=== PATIENT | female | born 1975 | race African-American/Black ===

== ENCOUNTER 2016-12-30 17:22 | Observation (INO) | payer MEDICARE, OTHER ==
[2016-12-30 17:46] VITALS: BMI 41.5
--- NOTE | 2016-12-30 17:50 | PDOC ---
History of Present Illness - General History Source: Patient, Old Records Exam Limitations: No Limitations <Olivia Jacques - Last Filed: 12/30/16 22:36> - General History Source: Patient, Old Records Exam Limitations: No Limitations - History of Present Illness Initial Comments: 12/30/16 19:09 The patient is a 41 year old female, with a significant past medical history of HTN and mitral valve prolapse, who presents to the emergency department with radiating midsternal chest pain and palpitations since earlier today. The patient describes her chest pain as sharp, she rates it as a 10/10 in severity and states that the episode of chest pain lasted a couple of minutes. The patient reports that her chest pain radiated to her left upper extremity as a numbness/tingling sensation. She states that her symptoms came on suddenly at rest as she was talking to her sister. She reports that her chest pain was not associated with any exertion. She reports that she has never experienced an episode like this ever before. The patient reports taking an aspirin (81 mg) this afternoon at approximately 3PM, with some relief of symptoms. She denies any associated nausea, vomiting, diaphoresis or shortness of breath. She denies any dizziness or lightheadedness. Allergies: Amoxicillin, Peanut, MSG. Past Surgical History: None reported. Social History: Non smoker. Denies alcohol or drug use. PCP: Dr. Patricia Mcguire Text Transcriber: Dr. Beltran <Sima Coleman - Last Filed: 12/30/16 22:40> - General Chief Complaint: Chest Pain Stated Complaint: CHEST PAIN Time Seen by Provider: 12/30/16 17:28 Past History - Past Medical History Cardiac Disorders: (mvp) HTN: Yes - Psycho/Social/Smoking Cessation Hx Anxiety: No Suicidal Ideation: No Smoking Status: No Smoking History: Never smoked Have you smoked in the past 12 months: No Number of Cigarettes Smoked Daily: 0 Information on smoking cessation initiated: No Hx Alcohol Use: No Drug/Substance Use Hx: No Substance Use Type: None <Zonia Jacquesfany - Last Filed: 12/30/16 22:36> <Sima Coleman - Last Filed: 12/30/16 22:40> - Past Medical History Allergies/Adverse Reactions: Allergies Allergy/AdvReac Type Severity Reaction Status Date / Time amoxicillin [Amoxicillin] Allergy Verified 12/30/16 17:43 peanut Allergy Verified 12/30/16 17:43 MSG Allergy Uncoded 12/30/16 17:43 Home Medications: Ambulatory Orders Aspirin [ASA -] 81 mg PO DAILY tab.chew 04/08/16 Hydrochlorothiazide [Hctz -] 12.5 mg PO DAILY 12/30/16 Review of Systems - Review of Systems Able to Perform ROS?: Yes Comments:: 12/30/16 19:09 GENERAL/CONSTITUTIONAL: No fever or chills. No weakness. HEAD, EYES, EARS, NOSE AND THROAT: No change in vision. No ear pain or discharge. No sore throat. CARDIOVASCULAR: +Chest pain, palpitations. No shortness of breath. RESPIRATORY: No cough, wheezing, or hemoptysis. GASTROINTESTINAL: No nausea, vomiting, diarrhea or constipation. GENITOURINARY: No dysuria, frequency, or change in urination. MUSCULOSKELETAL: No joint or muscle swelling or pain. No neck or back pain. SKIN: No rash. NEUROLOGIC: No headache, vertigo, loss of consciousness, or change in strength/ sensation. ENDOCRINE: No increased thirst. No abnormal weight change. HEMATOLOGIC/LYMPHATIC: No anemia, easy bleeding, or history of blood clots. ALLERGIC/IMMUNOLOGIC: No hives or skin allergy. <Sima Coleman - Last Filed: 12/30/16 22:40> *Physical Exam - Vital Signs Last Vital Signs Temp Pulse Resp BP Pulse Ox 98.1 F 91 H 18 131/92 100 12/30/16 17:44 12/30/16 17:44 12/30/16 17:44 12/30/16 17:44 12/30/16 17:44 <Olivia Jacques - Last Filed: 12/30/16 22:36> - Vital Signs Last Vital Signs Temp Pulse Resp BP Pulse Ox 98.1 F 91 H 18 131/92 100 12/30/16 17:44 12/30/16 17:44 12/30/16 17:44 12/30/16 17:44 12/30/16 17:44 - Physical Exam Comments: 12/30/16 19:19 GENERAL: Awake, alert, and fully oriented, in no acute distress. HEAD: No signs of trauma. EYES: PERRLA, EOMI, sclera anicteric, conjunctiva clear. ENT: Auricles normal inspection, hearing grossly normal, nares patent, oropharynx clear without exudates. Moist mucosa. NECK: Normal ROM, supple, no lymphadenopathy, JVD, or masses. LUNGS: Breath sounds equal, clear to auscultation bilaterally. No wheezes, and no crackles. HEART: Regular rate and rhythm, normal S1 and S2, no murmurs, rubs or gallops. ABDOMEN: Soft, nontender, normoactive bowel sounds. No guarding, no rebound. No masses. EXTREMITIES: Normal range of motion, no edema. No clubbing or cyanosis. No cords, erythema, or tenderness. NEUROLOGICAL: Cranial nerves II through XII grossly intact. Normal speech, normal gait. SKIN: Warm, dry, normal turgor, no rashes or lesions noted. <Sima Coleman - Last Filed: 12/30/16 22:40> ED Treatment Course - LABORATORY CBC & Chemistry Diagram: 12/30/16 18:13 12/30/16 18:13 <Olivia Jacques - Last Filed: 12/30/16 22:36> - LABORATORY CBC & Chemistry Diagram: 12/30/16 18:13 12/30/16 18:13 - ADDITIONAL ORDERS Additional order review: Laboratory Results 12/30/16 18:13 Urine Color Straw Urine Appearance Clear Urine pH 7.0 Ur Specific [place] 1.010 Urine Protein Negative Urine Glucose (UA) Negative Urine Ketones Negative Urine Blood 1+ H Urine Nitrite Negative Urine Bilirubin Negative Urine Urobilinogen Negative Ur Leukocyte Esterase Negative Urine RBC 2 Urine WBC <1 Ur Epithelial Cells Rare 12/30/16 18:13 RBC 4.38 MCV 89.8 MCHC 33.5 RDW 13.5 MPV 7.9 Neutrophils % 52.6 Lymphocytes % 34.6 Monocytes % 10.4 H Eosinophils % 1.7 Basophils % 0.7 <Sima Coleman - Last Filed: 12/30/16 22:40> Medical Decision Making - Medical Decision Making 12/30/16 18:45 41-year-old female with history of hypertension and mitral valve prolapse who presents to the emergency Department with complaints of chest pain radiating to her left arm associated with palpitations that started at rest this morning. Differential diagnosis includes but is not limited to: ACS, cardiac arrhythmia, thyroid disease, electrolyte abnormality, GERD, toxic/metabolic derangement. Plan: 1. Labs 2. EKG 3. Chest x-ray 4. Aspirinthe patient took 81 mg at 3 PM today; will give the remaining 243 mg in the ED now 5. Observe and reevaluate 12/30/16 22:36 Addendum: The labs were reviewed and are noted in the EMR. I've discussed the EKG as well as lab findings with the patient. The plan is to admit to observation for serial cardiac markers as well as stress test in the morning. I' ve discussed this with the patient's primary care physician was accepted patient to observation. <Olivia Jacques - Last Filed: 12/30/16 22:36> - Medical Decision Making 12/30/16 21:51 Called patient's PCP, Dr. Patricia Mcguire, at at 21:52, 22:25. Referred to answering service, awaiting callback. Dr. Patricia Mcguire returned call at 22:35, case discussed. <Sima Coleman - Last Filed: 12/30/16 22:40> *DC/Admit/Observation/Transfer - Discharge Dispostion Admit: Yes - Attestations Physician Attestion: 12/30/16 18:47 I, Dr. Olivia Jacques, attest that the scribes documentation that appears above has been prepared under my direction and personally reviewed by me in its entirety. I confirmed that the note above accurately reflects all work, treatment, procedures, and medical decision-making performed by me. <Olivia Jacques - Last Filed: 12/30/16 22:36> - Attestations Scribe Attestion: 12/30/16 18:34 Documentation prepared by Sima Coleman, acting as biomedical electronics technician for Olivia Jacques MD. <Sima Coleman - Last Filed: 12/30/16 22:40> Diagnosis at time of Disposition: Palpitations, Chest pain - Discharge Dispostion Condition at time of disposition: Stable
[2016-12-30 18:25] LABS: BASOPHIL 0.7 % (0-2.0); EOSINOPHIL 1.7 % (0-4.5); MCH 30.1 pg (25.7-33.7); MCHC 33.5 g/dl (32.0-36.0); MEAN CELL VOLUME 89.8 fl (80-96); MEAN PLT VOLUME 7.9 fl (7.5-11.1); NEUTROPHILS 52.6 % (42.8-82.8); PLATELET COUNT 281 K/MM3 (134-434); RDW 13.5 % (11.6-15.6); WHITE BLOOD COUNT 7.8 K/mm3 (4.0-10.0)
[2016-12-30 18:26] LABS: URINE APPEARANCE CLEAR; URINE BILIRUBIN NEGATIVE (NEGATIVE); URINE COLOR STRAW; URINE GLUCOSE (UA) NEGATIVE (NEGATIVE); URINE KETONE NEGATIVE (NEGATIVE); URINE LEUK ESTERASE NEGATIVE (NEGATIVE); URINE NITRITE NEGATIVE (NEGATIVE); URINE PROTEIN NEGATIVE (NEGATIVE); URINE UROBILINOGEN NEGATIVE E.U./dl (0.2-1.0)
[2016-12-30 18:27] LABS: URINE BLOOD 1+ (NEGATIVE)
[2016-12-30 18:29] LABS: URINE RBC 2 /hpf (0-3); URINE WBC <1 /hpf (3-5)
[2016-12-30] MEDS ORDERED: ASPIRIN 81 MG CHEWABLE TABLETS PO SCH (18:45)
[2016-12-30] MEDS ORDERED: ASPIRIN 81 MG CHEWABLE TABLETS ONE (18:48)
[2016-12-30 19:03] LABS: ALBUMIN 3.8 g/dl (3.4-5.0); ANION GAP 12 (8-16); BILIRUBIN,TOTAL 0.6 mg/dL (0.2-1.0); CO2 26 mmol/L (21-32); CREATININE 1.1 mg/dL (0.55-1.02); GLUCOSE,RANDOM 80 mg/dL (74-106); PHOSPHOROUS 3.1 mg/dL (2.5-4.9); SGOT/AST 12 U/L (15-37); SGPT/ALT 21 U/L (12-78); TOT PROT 7.6 g/dl (6.4-8.2)
[2016-12-30 19:06] LABS: ALK PHOS 79 U/L (45-117); TROPONIN I < 0.02 ng/ml (0.00-0.05)
[2016-12-30] MEDS ORDERED: POTASSIUM CHLORIDE TABS 20 MEQ TABLET.ER (FP) PO ONE ×2 (20:19→21:13)
[2016-12-30] MEDS ORDERED: POTASSIUM CHLORIDE 40 MEQ/30 ML UNIT DOSE CUP ONE (22:15)
[2016-12-30 23:43] LABS: TROPONIN I < 0.02 ng/ml (0.00-0.05)
[2016-12-31 03:52] VITALS: TEMP 99.3
[2016-12-31 08:30] VITALS: BP 115/72; PULSE 87
[2016-12-31 08:33] LABS: BASOPHIL 0.7 % (0-2.0); EOSINOPHIL 1.5 % (0-4.5); MCH 30.6 pg (25.7-33.7); MCHC 33.9 g/dl (32.0-36.0); MEAN CELL VOLUME 90.1 fl (80-96); MEAN PLT VOLUME 8.1 fl (7.5-11.1); NEUTROPHILS 47.6 % (42.8-82.8); PLATELET COUNT 256 K/MM3 (134-434); RDW 13.7 % (11.6-15.6); WHITE BLOOD COUNT 6.4 K/mm3 (4.0-10.0)
[2016-12-31 09:07] LABS: TROPONIN I < 0.02 ng/ml (0.00-0.05)
[2016-12-31 09:25] LABS: ALBUMIN 3.5 g/dl (3.4-5.0); BILIRUBIN,TOTAL 0.9 mg/dL (0.2-1.0); CALCIUM 8.6 mg/dL (8.5-10.1); CREATININE 1.1 mg/dL (0.55-1.02); FREE T4 0.99 ng/dl (0.76-1.46); MAGNESIUM 1.9 mg/dL (1.8-2.4); THYROID STIMULATING HORMONE 2.86 uIU/ml (0.358-3.74); TOT PROT 6.7 g/dl (6.4-8.2)
--- NOTE | 2016-12-31 09:27 | HP ---
[id number] Chief Complaint: chest pain , palpitations History of Present Illness: ER HISTORY - History of Present Illness Initial Comments: 12/30/16 19:09 The patient is a 41 year old female, with a significant past medical history of HTN and mitral valve prolapse, who presents to the emergency department with radiating midsternal chest pain and palpitations since earlier today. The patient describes her chest pain as sharp, she rates it as a 10/10 in severity and states that the episode of chest pain lasted a couple of minutes. The patient reports that her chest pain radiated to her left upper extremity as a numbness/tingling sensation. She states that her symptoms came on suddenly at rest as she was talking to her sister. She reports that her chest pain was not associated with any exertion. She reports that she has never experienced an episode like this ever before. The patient reports taking an aspirin (81 mg) this afternoon at approximately 3PM, with some relief of symptoms. She denies any associated nausea, vomiting, diaphoresis or shortness of breath. She denies any dizziness or lightheadedness. Allergies: Amoxicillin, Peanut, MSG. Past Surgical History: None reported. Social History: Non smoker. Denies alcohol or drug use. PCP: Dr. Patricia Mcguire Printing Agent: Dr. Beltran Pt seen by me in Tele States she has no chest pain currently Feels better today no palpitations or SOB Had mild abdominal pain this AM which subsided No nausea, dizziness History Source: Patient Limitations to Obtaining History: No Limitations - Past Medical History Cardiovascular: Yes: HTN - Smoking History Smoking history: Never smoked Have you smoked in the past 12 months: No Aproximately how many cigarettes per day: 0 - Alcohol/Substance Use Hx Alcohol Use: No Home Medications - Allergies Allergies/Adverse Reactions: Allergies Allergy/AdvReac Type Severity Reaction Status Date / Time amoxicillin [Amoxicillin] Allergy Verified 12/30/16 17:43 peanut Allergy Verified 12/30/16 17:43 MSG Allergy Uncoded 12/30/16 17:43 - Home Medications Home Medications: Ambulatory Orders Aspirin [ASA -] 81 mg PO DAILY tab.chew 04/08/16 Hydrochlorothiazide [Hctz -] 12.5 mg PO DAILY 12/30/16 Metoprolol Tartrate [Lopressor -] 25 mg PO DAILY PRN #60 tablet 12/31/16 Potassium Chloride 10 meq PO DAILY #60 capsule.er 12/31/16 Review of Systems - Review of Systems Constitutional: denies: Chills, Fever, Loss of Appetite, Weakness Cardiovascular: reports: Chest Pain, Palpitations. denies: Edema, Shortness of Breath Respiratory: denies: Cough, SOB Physical Examination Vital Signs: Vital Signs Temperature 99.3 F 12/30/16 23:45 Pulse Rate 87 12/31/16 08:24 Respiratory Rate 20 12/31/16 08:24 Blood Pressure 115/72 12/31/16 08:24 O2 Sat by Pulse Oximetry (%) 100 12/31/16 00:18 Constitutional: Yes: No Distress, Calm Cardiovascular: Yes: Regular Rate and Rhythm Respiratory: Yes: CTA Bilaterally Gastrointestinal: Yes: Normal Bowel Sounds, Soft, Abdomen, Obese. No: Distention, Tenderness Edema: No Psychiatric: Yes: Alert, Oriented Labs: CBC, BMP 12/31/16 05:45 12/31/16 05:45 Imaging - Results Chest X-ray: Image Reviewed (clear) EKG: Image Reviewed (NSR, No ST changes) Problem List - Problems (1) Chest pain Code(s): R07.9 - CHEST PAIN, UNSPECIFIED Qualifiers: Chest pain type: other chest pain Qualified Code(s): R07.89 - Other chest pain; R07.8 - Other chest pain (2) Palpitations Code(s): R00.2 - PALPITATIONS Assessment/Plan PLAN no PVC here She has had multiple work up with Dr Beltran in the past for the above symptoms- - negative work up continue with HCTZ, add KCL daily spoke with DR Blackwood-- trial of Lopressor PRN in case she has palpitations Stable for dc home
[2016-12-31] MEDS ORDERED: ASPIRIN 81 MG CHEWABLE TABLETS PO SCH (10:00)
[2016-12-31] MEDS ORDERED: HYDROCHLOROTHIAZIDE 12.5 MG CAPSULE (FP) PO SCH (10:00)
--- NOTE | 2016-12-31 10:57 | CON.CARD ---
Cardiology Consult (text) - Consultation Consultation Note: cc: palps, cp hpi: 41 f hx obesity, mvp, chronic palps/cp, htn, anxiety, here with cp/palps. Pt has chronic intermittent episodes of atypical cp along with palps ( sometimes skipped beats, sometimes fast beats) that has been occurring for years with prior cardiac workup unremarkable. Yesterday she had cp/palps episode at rest but seemed to be worse and longer duration than usual so came to er. No sob, dizzy, loc, pnd, orthopnea, le edema. No excess caffeine use. This AM feels better and asking to go home. Sees dr adler for cardio. pmh: per hpi psh: NC social: no tob fam: mom cabg 50s, no scd ros: per hpi; no nvd, fever, cough, [place], vision changes, gib, hematuria, dysuria , muscle pain meds: Home Medications Medication Instructions Recorded Aspirin [ASA -] 81 mg PO DAILY tab.chew 04/08/16 Hydrochlorothiazide [Hctz -] 12.5 mg PO DAILY 12/30/16 Metoprolol Tartrate [Lopressor -] 25 mg PO DAILY PRN #60 tablet 12/31/16 Potassium Chloride 10 meq PO DAILY #60 capsule.er 12/31/16 pe: Vital Signs Period Temp Pulse Resp BP Sys/Kim Pulse Ox Last 24 Hr 98.1 F-99.3 F 86-92 18-20 115-131/72-92 98-100 nad no jvd rrr s1s2 no mrg cta bl nl eff aaox3 no le e/c/c abd nd nt pos bs no jaundice diaphoresis pos dp pt no carotid bruits Laboratory Last Values WBC 6.4 K/mm3 (4.0-10.0) 12/31/16 05:45 RBC 4.07 M/mm3 (3.60-5.2) 12/31/16 05:45 Hgb 12.4 GM/dL (10.7-15.3) 12/31/16 05:45 Hct 36.7 % (32.4-45.2) 12/31/16 05:45 MCV 90.1 fl (80-96) 12/31/16 05:45 MCHC 33.9 g/dl (32.0-36.0) 12/31/16 05:45 RDW 13.7 % (11.6-15.6) 12/31/16 05:45 Plt Count 256 K/MM3 (134-434) 12/31/16 05:45 MPV 8.1 fl (7.5-11.1) 12/31/16 05:45 Neutrophils % 47.6 % (42.8-82.8) 12/31/16 05:45 Lymphocytes % 41.7 % (8-40) H D 12/31/16 05:45 Monocytes % 8.5 % (3.8-10.2) 12/31/16 05:45 Eosinophils % 1.5 % (0-4.5) 12/31/16 05:45 Basophils % 0.7 % (0-2.0) 12/31/16 05:45 Sodium 139 mmol/L (136-145) 12/31/16 05:45 Potassium 3.5 mmol/L (3.5-5.1) 12/31/16 05:45 Chloride 104 mmol/L (98-107) 12/31/16 05:45 Carbon Dioxide 25 mmol/L (21-32) 12/31/16 05:45 Anion Gap 10 (8-16) 12/31/16 05:45 BUN 13 mg/dL (7-18) 12/31/16 05:45 Creatinine 1.1 mg/dL (0.55-1.02) H 12/31/16 05:45 Creat Clearance w eGFR 54.47 (>60) 12/31/16 05:45 Random Glucose 93 mg/dL (74-106) 12/31/16 05:45 Calcium 8.6 mg/dL (8.5-10.1) 12/31/16 05:45 Phosphorus 3.1 mg/dL (2.5-4.9) D 12/30/16 18:13 Magnesium 1.9 mg/dL (1.8-2.4) 12/31/16 05:45 Total Bilirubin 0.9 mg/dL (0.2-1.0) D 12/31/16 05:45 AST 11 U/L (15-37) L 12/31/16 05:45 ALT 19 U/L (12-78) 12/31/16 05:45 Alkaline Phosphatase 74 U/L (45-117) 12/31/16 05:45 Creatine Kinase 125 IU/L (26-192) 12/31/16 05:45 CK-MB (CK-2) < 1.000 ng/ml (0.5-3.6) 12/30/16 18:13 Troponin I < 0.02 ng/ml (0.00-0.05) 12/31/16 05:45 Total Protein 6.7 g/dl (6.4-8.2) 12/31/16 05:45 Albumin 3.5 g/dl (3.4-5.0) 12/31/16 05:45 TSH 2.86 uIU/ml (0.358-3.74) D 12/31/16 05:45 Free T4 0.99 ng/dl (0.76-1.46) D 12/31/16 05:45 Urine Color Straw 12/30/16 18:13 Urine Appearance Clear 12/30/16 18:13 Urine pH 7.0 (5.0-8.0) 12/30/16 18:13 Ur Specific [place] 1.010 (1.001-1.035) 12/30/16 18:13 Urine Protein Negative (NEGATIVE) 12/30/16 18:13 Urine Glucose (UA) Negative (NEGATIVE) 12/30/16 18:13 Urine Ketones Negative (NEGATIVE) 12/30/16 18:13 Urine Blood 1+ (NEGATIVE) H 12/30/16 18:13 Urine Nitrite Negative (NEGATIVE) 12/30/16 18:13 Urine Bilirubin Negative (NEGATIVE) 12/30/16 18:13 Urine Urobilinogen Negative E.U./dl (0.2-1.0) 12/30/16 18:13 Ur Leukocyte Esterase Negative (NEGATIVE) 12/30/16 18:13 Urine RBC 2 /hpf (0-3) 12/30/16 18:13 Urine WBC <1 /hpf (3-5) 12/30/16 18:13 Ur Epithelial Cells Rare /hpf (FEW) 12/30/16 18:13 ecg 12/30/16: sr, nl intervals, nonspecific tw flattening, no sig change from office ecg 11/30/16 tele: sr cxr: clear lungs echo 11/2016: nl lv/rv, mild mr, no mvp a/p: 41 f hx obesity, mvp, chronic palps/cp, htn, anxiety, here with cp/palps. cp/palps: -chronic symptoms -no signs acs, ce's neg x3, ecg w/o ischemic changes -tele unremarkable -has had recent unremarkable echo and prior event monitor in 2014 that was benign -possible she may be having some ectopy or brief svt causing her sxs so would start lopressor 25 mg prn once daily if needed for palps. if this bb is helping her sxs then would eventually dc hctz and use bb for bp/palp control. -ok for dc from cardiac pov. pt instructed to f/u with cardio dr adler 1-2 weeks mvp: -stable, no mvp seen on recent echo htn: -controlled on hctz
--- NOTE | 2016-12-31 20:34 | DS ---
Physical Examination Vital Signs: Vital Signs Temperature 99.3 F 12/30/16 23:45 Pulse Rate 87 12/31/16 08:24 Respiratory Rate 20 12/31/16 08:24 Blood Pressure 115/72 12/31/16 08:24 O2 Sat by Pulse Oximetry (%) 94 L 12/31/16 09:00 Labs: CBC, BMP 12/31/16 05:45 12/31/16 05:45 Discharge Summary Reason For Visit: PALPITATIONS/CHEST PAIN Current Active Problems Chest pain (Acute) Palpitations (Acute) Hospital Course: see h & P-- same day discharge Condition: Stable - Instructions Disposition: HOME - Home Medications Comprehensive Discharge Medication List: Ambulatory Orders Aspirin [ASA -] 81 mg PO DAILY tab.chew 04/08/16 Hydrochlorothiazide [Hctz -] 12.5 mg PO DAILY 12/30/16 Metoprolol Tartrate [Lopressor -] 25 mg PO DAILY PRN #60 tablet 12/31/16 Potassium Chloride 10 meq PO DAILY #60 capsule.er 12/31/16
--- NOTE | 2017-01-01 00:43 | EKG ---
Test Reason : Blood Pressure : / mmHG Vent. Rate : 084 BPM Atrial Rate : 084 BPM P-R Int : 158 ms QRS Dur : 082 ms QT Int : 440 ms P-R-T Axes : 053 -22 020 degrees QTc Int : 519 ms NORMAL SINUS RHYTHM POSSIBLE LEFT ATRIAL ENLARGEMENT NONSPECIFIC T WAVE ABNORMALITY PROLONGED QT ABNORMAL ECG WHEN COMPARED WITH ECG OF 30-DEC-2016 17:35, NO SIGNIFICANT CHANGE WAS FOUND Confirmed by JAYCE DELATORRE MD ([id number]) on 01/01/2017 12:43:00 AM Referred By: Confirmed By:JAYEC DELATORRE MD
--- NOTE | 2017-01-01 00:46 | EKG ---
Test Reason : Blood Pressure : / mmHG Vent. Rate : 093 BPM Atrial Rate : 093 BPM P-R Int : 150 ms QRS Dur : 082 ms QT Int : 384 ms P-R-T Axes : 064 -23 032 degrees QTc Int : 477 ms NORMAL SINUS RHYTHM POSSIBLE LEFT ATRIAL ENLARGEMENT NONSPECIFIC T WAVE ABNORMALITY PROLONGED QT ABNORMAL ECG WHEN COMPARED WITH ECG OF 07-APR-2016 17:32, NO SIGNIFICANT CHANGE WAS FOUND Confirmed by JAYCE DELATORRE MD ([id number]) on 01/01/2017 12:46:00 AM Referred By: Confirmed By:JAYCE DELATORRE MD
== END 2016-12-31 11:48 | disposition home or self-care (01) ==
LOC: JER 17:22 → JERBED 22:58 → J4W 12-31 01:01
PROVIDERS: ADMIT Internal Medicine; ATTEND Internal Medicine
DX: R07.9 Chest pain, unspecified (principal); R00.2 Palpitations; F41.9 Anxiety disorder, unspecified; I34.1 Nonrheumatic mitral (valve) prolapse
CPT/HCPCS: 36415; 71010-TC; 80053; 81003; 81015; 82550; 82553; 83735; 84100; 84439; 84443; 84484; 85025; 93005; 93010; 99285-25; G0378

== ENCOUNTER 2018-08-21 13:34 | Emergency (ER) | payer SELFPAY ==
--- NOTE | 2018-08-21 13:53 | PDOC ---
Rapid Medical Evaluation Time Seen by Provider: 08/21/18 13:49 Medical Evaluation: Allergies Allergy/AdvReac Type Severity Reaction Status Date / Time amoxicillin [Amoxicillin] Allergy Verified 12/30/16 17:43 peanut Allergy Verified 12/30/16 17:43 MSG Allergy Uncoded 12/30/16 17:43 08/21/18 13:50 The patient presents to the ED with: hx htn, no change in meds, felling lightheadedness and queasy with sharp achiness to left shoulder and neck and upper back x 1 day, headache yesterday( resolved w/out intervention) The patient on brief exam: vss The patient ordered for: cardiac profile, ekg, cbc, comp, ua, upreg The patient to proceed to the ED Discharge Disposition - Diagnosis Lightheadedness - Referrals Referrals: Virginia Hall MD [Primary Care Provider] - - Patient Instructions - Post Discharge Activity
[2018-08-21 13:54] VITALS: TEMP 98.3; BMI 44.7
[2018-08-21 14:59] LABS: BASO % 0.7 % (0-2.0); EOS % 1.4 % (0-4.5); HEMATOCRIT 39.3 % (32.4-45.2); HEMOGLOBIN 12.8 GM/dL (10.7-15.3); LYMPH % 38.1 % (8-40); MCH 29.7 pg (25.7-33.7); MCHC 32.6 g/dl (32.0-36.0); MEAN CELL VOLUME 91.2 fl (80-96); MEAN PLT VOLUME 7.7 fl (7.5-11.1); MONO % 8.8 % (3.8-10.2); PLATELET COUNT 288 K/MM3 (134-434); RBC 4.31 M/mm3 (3.60-5.2); RDW 13.6 % (11.6-15.6); WHITE BLOOD COUNT 8.3 K/mm3 (4.0-10.0)
[2018-08-21 15:28] LABS: ALBUMIN 3.8 g/dl (3.4-5.0); ALK PHOS 76 U/L (45-117); ANION GAP 7 MMOL/L (8-16); BILIRUBIN,TOTAL 0.7 mg/dL (0.2-1); BLOOD UREA NITROGEN 13 mg/dL (7-18); CALCIUM 9.4 mg/dL (8.5-10.1); CHLORIDE 102 mmol/L (98-107); CO2 29 mmol/L (21-32); GLUCOSE,RANDOM 72 mg/dL (74-106); POTASSIUM 3.2 mmol/L (3.5-5.1); SGOT/AST 13 U/L (15-37); SGPT/ALT 22 U/L (13-61); SODIUM 138 mmol/L (136-145); TOT PROT 7.6 g/dl (6.4-8.2)
--- NOTE | 2018-08-21 15:33 | PDOC ---
History of Present Illness - General Chief Complaint: Lightheaded Stated Complaint: Blood Pressure Problem Time Seen by Provider: 08/21/18 13:49 History Source: Patient Exam Limitations: No Limitations - History of Present Illness Initial Comments: 08/21/18 15:19 42 yo female pmh of hypertension and low vitamin D and hypokalemia presents to the ED with chronic left shoulder pain since December and a resolved headache with associated nausea yesterday (no current symptoms of GROSS or nausea and denies changes in vision, changes in speech, once sided weakness, incontinence, CP, SOB, or abdominal pain. Used 2 Excedrin pills yesterday with relief of GROSS) Patient states her shoulder pain is of the same quality and location from its onset in December and has been intermittent. Patient had a recent negative cervical spine MRI (May 2018) and saw her PCP 1 month ago for the pain and received negative x rays of the shoulder and told to take muscle relaxants but states she has not taken any because she is concerned it will make her drowsy when she needs to care for her young child. Patients is left hand dominant and admits to sleeping on her left shoulder with noted increased pain. Patient admits to increased pain today in the shoulder with movement and denies weakness or coldness into the hands. Past History - Past Medical History Allergies/Adverse Reactions: Allergies Allergy/AdvReac Type Severity Reaction Status Date / Time amoxicillin [Amoxicillin] Allergy Verified 08/21/18 13:53 peanut Allergy Verified 08/21/18 13:53 MSG Allergy Uncoded 08/21/18 13:53 Home Medications: Ambulatory Orders Hydrochlorothiazide [Hctz -] 12.5 mg PO DAILY 12/30/16 Ergocalciferol [Vitamin D2] 50,000 unit PO Q7D@1000 08/21/18 Cardiac Disorders: (mvp) HTN: Yes - Suicide/Smoking/Psychosocial Hx Smoking Status: No Smoking History: Never smoked Have you smoked in the past 12 months: No Number of Cigarettes Smoked Daily: 0 Information on smoking cessation initiated: No Hx Alcohol Use: No Drug/Substance Use Hx: No Substance Use Type: None Review of Systems - Review of Systems Constitutional: No: Chills, Fever HEENTM: No: Blurred Vision, Double Vision Respiratory: No: Shortness of Breath Cardiac (ROS): No: Chest Pain, Lightheadedness ABD/GI: No: Nausea, Vomiting : No: Burning, Dysuria Musculoskeletal: Yes: Other (Left shoulder pain). No: Back Pain Neurological: No: Headache, Numbness, Paresthesia, Tingling, Weakness *Physical Exam - Vital Signs Last Vital Signs Temp Pulse Resp BP Pulse Ox 98.3 F 87 16 154/77 96 08/21/18 13:50 08/21/18 13:50 08/21/18 13:50 08/21/18 13:50 08/21/18 13:50 - Physical Exam General Appearance: Yes: Nourished, Appropriately Dressed. No: Apparent Distress HEENT: positive: EOMI, RANDI Neck: negative: Tender Respiratory/Chest: positive: Lungs Clear, Normal Breath Sounds Cardiovascular: positive: Regular Rhythm, Regular Rate, S1, S2. negative: Edema , JVD, Murmur Vascular Pulses: Dorsalis-Pedis (R): 3+, Doralis-Pedis (L): 3+ Comments:: 08/21/18 16:03 equal radial pulses Gastrointestinal/Abdominal: positive: Flat, Soft. negative: Tender, Pulsatile Mass, Tenderness Musculoskeletal: positive: Normal Inspection Extremity: positive: Normal Capillary Refill, Normal Inspection, Normal Range of Motion, Other (Left shoulder normal to inspection, equal ROM, sensation, stregnth and pulses when compared bilaterally, ) Integumentary: positive: Normal Color, Dry, Warm Neurologic: positive: home demonstrator II-XII NML intact, Fully Oriented, Alert, Normal Mood/ Affect, Normal Response, Motor Strength 5/5. negative: Facial Droop, Numbness, Sensory Deficit ED Treatment Course - LABORATORY CBC & Chemistry Diagram: 08/21/18 14:50 08/21/18 14:50 - ADDITIONAL ORDERS Additional order review: 08/21/18 14:50 RBC 4.31 MCV 91.2 MCHC 32.6 RDW 13.6 MPV 7.7 Neutrophils % 51.0 Lymphocytes % 38.1 Monocytes % 8.8 Eosinophils % 1.4 Basophils % 0.7 Medical Decision Making - Medical Decision Making 08/21/18 16:06 42 yo female pmh of HTN and chronic L shoulder pain presents to the ED with L shoulder pain described as similar to past pain and took no recommended treatments from PCP. Exam: neurovascularly intact, normal ROM and globally negative Neuro exam. Minor pain with palpation of L shoulder. Labs ordered and drawn in triage by MARGARITA Labs normal but Potassium found to be 3.2 will give 40mg PO and Motrin 600mg for the pain No imaging needed due to recent negative cervical MRI and shoulder x ray Will discharge pt home with PCP and Ortho follow up Patient resting comfortably in bed, not in pain and asking to go home 08/21/18 17:43 2+ blood found on UA, tell patient to discuss with PCP and possibly recheck may be menstrual blood. *DC/Admit/Observation/Transfer Diagnosis at time of Disposition: Shoulder pain Qualifiers: Chronicity: chronic Laterality: left Qualified Code(s): M25.512 - Pain in left shoulder - Discharge Dispostion Disposition: HOME Condition at time of disposition: Good Decision to Admit order: No - Referrals Referrals: Virginia Hall MD [Primary Care Provider] - Nestor Kim MD [Staff Physician] - Philip Penaloza MD [Staff Physician] - - Patient Instructions Printed Discharge Instructions: DI for Shoulder Pain Additional Instructions: Please take Motrin over the counter as directed on the box as needed for your shoulder pain every 4-6 hours. Please follow up with your Family Doctor within the next 2 days and discuss your concerns about your blood pressure cuff, low potassium and blood in urine. Please return to the Emergency Room for new or worsening symptoms including but not limited to: weakness down one arm, inability to move arm due to pain or coldness into the left hand. Thank you - Post Discharge Activity
[2018-08-21] MEDS ORDERED: IBUPROFEN 600 MG TABLET (FP) PO ONE ×2 (15:51→15:56)
--- NOTE | 2018-08-21 16:00 | PDOC ---
Attending Attestation - Resident Resident Name: Fadi Escobar - ED Attending Attestation I have performed the following: I have examined & evaluated the patient, The case was reviewed & discussed with the resident, I agree w/resident's findings & plan, Exceptions are as noted - HPI HPI: 08/21/18 15:55 42 yo F h/o hypokalemia presenting to the ER with a complaint of left shoulder pain since December Pt reports having a headache with associated nausea yesterday (no current symptoms of GROSS or nausea and denies changes in vision, changes in speech, once sided weakness, incontinence, CP, SOB, or abdominal pain. H/A resolved with Excedrin She has also noted left shoulder pain (LHD) worked up in the past - xray reportedly negative, c spine MRI negative - Physicial Exam PE: 08/21/18 15:59 GENERAL: Well appearing LUNGS: Clear to auscultation bilaterally, no wheezes, rales or rhonchi. HEART: Regular rate and rhythm without murmurs, rubs or gallops. ABDOMEN: Normoactive bowel sounds, soft, nontender, no masses, no rebound, no guarding. NEUROLOGICAL: Normal motor function, normal sensation. - Medical Decision Making 08/21/18 16:00 Laboratory Tests 08/21/18 08/21/18 14:50 14:50 WBC 8.3 Hgb 12.8 Hct 39.3 Plt Count 288 BUN 13 Creatinine 1.0 Creatine Kinase 154 Creatine Kinase Index 0.6 CK-MB (CK-2) < 1.0 Troponin I < 0.02 Pt is able to range the shoulder, no deformities, prior nml shoulder x ray Pt denies recent trauma or heavy lifting Pt has been evaluated as well by MRI cervical spine which was reportedly negative No weakness or numbness EKG - SR rate of 81 bpm, axis nml, intervals nml, no st elevations or depressions
[2018-08-21] MEDS ORDERED: POTASSIUM CHLORIDE TABS 20 MEQ TABLET.ER (FP) PO ONE ×2 (16:01→16:04)
[2018-08-21 16:05] LABS: HCG,QUALITATIVE URINE Negative
[2018-08-21] MEDS ORDERED: POTASSIUM CHLORIDE ORAL LIQUID 20 MEQ/15 ML ONE (16:06)
[2018-08-21 17:35] LABS: URINE APPEARANCE CLEAR; URINE BILIRUBIN NEGATIVE (<2.0 mg/dL); URINE COLOR LTYELLOW; URINE GLUCOSE (UA) NEGATIVE (NEGATIVE); URINE KETONE NEGATIVE (NEGATIVE); URINE LEUK ESTERASE NEGATIVE (NEGATIVE); URINE NITRITE NEGATIVE (NEGATIVE); URINE PROTEIN NEGATIVE (NEGATIVE); URINE UROBILINOGEN NEGATIVE mg/dL (0.2-1.0)
[2018-08-21 17:37] VITALS: BP 135/82; PULSE 81
[2018-08-21 17:38] LABS: EPI CELLS RARE /HPF (FEW); URINE MUCUS RARE
--- NOTE | 2018-08-22 12:11 | EKG ---
Test Reason : Blood Pressure : / mmHG Vent. Rate : 081 BPM Atrial Rate : 081 BPM P-R Int : 152 ms QRS Dur : 082 ms QT Int : 404 ms P-R-T Axes : 061 -17 032 degrees QTc Int : 469 ms NORMAL SINUS RHYTHM POSSIBLE LEFT ATRIAL ENLARGEMENT POSSIBLE ANTERIOR INFARCT , AGE UNDETERMINED ABNORMAL ECG WHEN COMPARED WITH ECG OF 30-DEC-2016 22:40, NONSPECIFIC T WAVE ABNORMALITY, WORSE IN ANTERIOR LEADS Confirmed by FRANKIE GONZALEZ, ANTIONE ([id number]) on 08/22/2018 12:11:21 PM Referred By: Confirmed By:ANTIONE DAVID MD
== END 2018-08-21 17:57 | disposition home or self-care (01) ==
LOC: JER 13:34
DX: M25.512 Pain in left shoulder (principal); G89.29 Other chronic pain; I10 Essential (primary) hypertension
CPT/HCPCS: 36415; 80053; 81003; 81015; 82550; 82553; 84484; 84703; 85025; 93005; 93010; 99282-25

== ENCOUNTER 2019-08-04 22:06 | Emergency (ER) | payer BC, OTHER ==
[2019-08-04 22:16] VITALS: BP 153/83; PULSE 97; TEMP 98; BMI 41.5
--- NOTE | 2019-08-04 22:35 | PDOC ---
History of Present Illness - General Chief Complaint: Pain, Acute Stated Complaint: LEFT UPPER BACK PAIN RADIATING DOWN LEFT ARM Time Seen by Provider: 08/04/19 22:17 History Source: Patient Exam Limitations: No Limitations - History of Present Illness Initial Comments: 08/04/19 22:35 This is a 43-year-old female who comes in complaining of left upper back pain radiating down the outside of her left arm. Patient initially went to an urgent care center but was sent to the ED for further evaluation. Patient denies any chest pain or shortness of breath. Patient denies any nausea. Patient said pain is not worse with a deep breath or movement. However pain is reproduced with palpation. Patient otherwise has a history of hypertension, obesity and high cholesterol. Patient took 2 baby aspirin when she developed the pain Allergies: as per nursing notes Past Medical History: none Social history: Lives with family. No smoking. No alcohol. No illicit drugs. Surgical history: None General: No fevers or chills, no weakness, no weight loss HEENT: No change in vision. No sore throat,. No ear pain CardioVascular: no chest discomfort. No shortness of breath Respiratory:No cough, or wheezing. BACK: Back pain. Radiating to left arm posterior arm Gastrointestinal: no nausea, vomiting, diarrhea or constipation, No rectal bleeding Genitourinary: No dysuria, hematuria, or frequency Musculoskeletal: No joint or muscle pain or swelling Neurologic: No headache, vertigo, dizziness or loss of consciousness Psychiatric: nor depression Skin: No rashes or easy bruising Endocrine: no increased thirst or abnormal weight change Allergic: no skin or latex allergy All other systems reviewed and normal Exam: General: Well-nourished well-developed individual, no acute distress HEENT: Throat: Normal, tonsils normal, no erythema or exudate Neck: Supple, no meningeal signs, no lymphadenopathy Eyes::Pupils equal reactive and round, extraocular motion intact Chest: Nontender to palpation Cardiac: S1-S2 normal, regular rate and rhythm, no murmurs rubs or gallops Respiratory: Lungs clear to auscultation bilateral Abdomen: Soft, nondistended, normal bowel sounds, there is no tenderness on palpation diffusely BACK: Pain is reproduced on palpation of the upper left back area. There is no pain on palpation of the arm. There is no cervical or thoracic spine tenderness on palpation Extremities: Warm, dry, no cyanosis, clubbing, or edema Skin: No rashes Neuro: Alert and oriented x3, CN II - XII intact, nonfocal exam with normal strength, normal sensation, normal reflexes, normal gait, Psych: Normal mood and affect Assessment plan: This is a 43-year-old female comes in complaining of left upper back pain radiating to her posterior arm. Workup initiated including CBC, comp, chest x-ray, EKG. And enzymes Patient's workup was negative. Her troponin was not measurable. Her EKG was normal with the exception of some prolonged QT. Patient discharged will follow-up with her primary care doctor Past History - Past Medical History Allergies/Adverse Reactions: Allergies Allergy/AdvReac Type Severity Reaction Status Date / Time amoxicillin [Amoxicillin] Allergy Verified 08/04/19 22:10 peanut Allergy Verified 08/04/19 22:10 MSG Allergy Uncoded 08/21/18 13:53 Home Medications: Ambulatory Orders Hydrochlorothiazide [Hctz -] 12.5 mg PO DAILY 12/30/16 Ergocalciferol [Vitamin D2] 50,000 unit PO Q7D@1000 08/21/18 Lisinopril 10 mg PO DAILY 08/04/19 Cardiac Disorders: (mvp) COPD: No HTN: Yes Other medical history: ANXIETY - Suicide/Smoking/Psychosocial Hx Smoking Status: No Smoking History: Never smoked Have you smoked in the past 12 months: No Number of Cigarettes Smoked Daily: 0 Information on smoking cessation initiated: No Hx Alcohol Use: No Drug/Substance Use Hx: No Substance Use Type: None *Physical Exam - Vital Signs Last Vital Signs Temp Pulse Resp BP Pulse Ox 98 F 97 H 16 153/83 99 08/04/19 22:13 08/04/19 22:13 08/04/19 22:13 08/04/19 22:13 08/04/19 22:13 Heart Score/ECG Review - History History: Slightly suspicious - Electrocardiogram EKG: Non specific repolarization disturbance - Age Age: </= 45 - Risk Factors Based on the list above the patient has:: >/=3 risk factors or Hx atherosclerotic disease - Troponin Troponin: </= normal limit - Score Heart Score - Total: 3 ED Treatment Course - LABORATORY CBC & Chemistry Diagram: 08/04/19 22:40 08/04/19 22:40 *DC/Admit/Observation/Transfer Diagnosis at time of Disposition: Upper back pain on left side - Discharge Dispostion Condition at time of disposition: Stable - Referrals Referrals: Virginia Hall MD [Primary Care Provider] - - Patient Instructions Additional Instructions: Take Tylenol or Motrin as needed for pain. Physical follow-up with your doctor. Return to the emergency department immediately with ANY new, persistent or worsening symptoms. Continue any medications as previously prescribed by your physician. You should follow up with your primary doctor as soon as possible regarding today's emergency department visit. . Please make sure your doctor reviews the results of your emergency evaluation. Thank you for coming to the Emergency Department today for your care. It was a pleasure to see you today. Please note that your evaluation is INCOMPLETE until you follow-up with your doctor. - Post Discharge Activity
[2019-08-04 22:54] LABS: BASO % 2.7 % (0-2.0); EOS % 1.1 % (0-4.5); HEMATOCRIT 38.2 % (32.4-45.2); HEMOGLOBIN 12.6 GM/dl (10.7-15.3); LYMPH % 37.9 % (8-40); MCH 30.1 pg (25.7-33.7); MEAN CELL VOLUME 91.2 fl (80-96); MEAN PLT VOLUME 8.1 fl (7.5-11.1); MONO % 7.6 % (3.8-10.2); NEUT % 50.7 % (42.8-82.8); PLATELET COUNT 323 K/MM3 (134-434); RBC 4.19 M/mm3 (3.60-5.2); RDW 13.2 % (11.6-15.6); WHITE BLOOD COUNT 7.4 K/mm3 (4.0-10.8)
[2019-08-04 23:09] LABS: ALBUMIN 4.1 g/dl (3.4-5.0); BILIRUBIN,TOTAL 0.7 mg/dl (0.2-1); CALCIUM 9.3 mg/dl (8.5-10); POTASSIUM 3.5 mmol/L (3.5-5.1); TOT PROT 7.4 g/dl (6.4-8.2)
[2019-08-04] MEDS ORDERED: IBUPROFEN 600 MG TABLET (FP) PO ONE ×2 (23:23)
--- NOTE | 2019-08-05 11:03 | EKG ---
Test Reason : Blood Pressure : / mmHG Vent. Rate : 090 BPM Atrial Rate : 090 BPM P-R Int : 144 ms QRS Dur : 082 ms QT Int : 402 ms P-R-T Axes : 059 -20 018 degrees QTc Int : 491 ms NORMAL SINUS RHYTHM POSSIBLE LEFT ATRIAL ENLARGEMENT PROLONGED QT ABNORMAL ECG WHEN COMPARED WITH ECG OF 21-AUG-2018 16:17, NO SIGNIFICANT CHANGE WAS FOUND Confirmed by Elan Brown ([id number]) on 08/05/2019 11:03:02 AM Referred By: Confirmed By:Elan Brown
== END 2019-08-04 23:41 | disposition home or self-care (01) ==
LOC: FER 22:06
DX: M54.9 Dorsalgia, unspecified (principal); I10 Essential (primary) hypertension; E66.9 Obesity, unspecified; Z91.010 Allergy to peanuts; Z88.0 Allergy status to penicillin; I34.1 Nonrheumatic mitral (valve) prolapse; F41.9 Anxiety disorder, unspecified
CPT/HCPCS: 36415; 71045-TC-FY; 80053; 82550; 84484; 85025; 93005; 99282-25

== ENCOUNTER 2023-02-27 04:10 | Day surgery (SDC) | payer OTHER ==
[2023-02-23 16:29] VITALS: BMI 45.2
[2023-02-27] MEDS ORDERED: PROPOFOL 40 ML ONE (07:40)
[2023-02-27] MEDS ORDERED: LIDOCAINE HCL/PF 2% SDV 5ML VIAL ONE (07:40)
[2023-02-27] MEDS ORDERED: MIDAZOLAM HCL 2 MG/2 ML SINGLE DOSE VIAL ONE (07:41)
[2023-02-27] MEDS ORDERED: metroNIDAZOLE 500 MG PREMIXED 1,000 MG/200 ML MG IVPB ONE (08:11)
[2023-02-27] MEDS ORDERED: ALBUTEROL SO4 HFA INHALER IH ONE (08:27)
[2023-02-27] MEDS ORDERED: ONDANSETRON 4 MG/2 ML VIAL ONE (08:27)
[2023-02-27] MEDS ORDERED: HYDROCORTISONE SOD SUCCINATE 100 MG/2 ML VIAL ONE (08:27)
[2023-02-27] MEDS ORDERED: DEXAMETHASONE SOD PHOSPHATE 4 MG/1 ML VIAL ONE (08:27)
[2023-02-27] MEDS ORDERED: oxyCODONE HCL 5 MG TABLET PO PRN (08:49)
[2023-02-27] MEDS ORDERED: IBUPROFEN 800 MG/8 ML IJ IVPB PRN (08:49)
[2023-02-27] MEDS ORDERED: ONDANSETRON 4 MG/2 ML VIAL IVPUSH PRN (08:49)
[2023-02-27] MEDS ORDERED: IBUPROFEN 600 MG TABLET (FP) PO PRN (08:49)
[2023-02-27] MEDS ORDERED: ELECTROLYTE-148 SOLN 1,000 ML IV SCH (09:00)
[2023-02-27] MEDS ORDERED: ACETAMINOPHEN 1000 MG/100 ML BAG IVPB PRN (09:06)
[2023-02-27] MEDS ORDERED: LACTATED RINGERS SOLUTION 1,000 ML IV SCH (09:15)
[2023-02-27 12:30] VITALS: RESP 16
[2023-02-27 12:33] VITALS: BP 118/77; PULSE 85; TEMP 98.1
== END 2023-02-27 13:15 | disposition home or self-care (01) ==
LOC: JASU-SURG 04:10
PROVIDERS: ATTEND Obstetrics & Gynecology
PROC: 0UB98ZZ Excision of Uterus, Via Natural or Artificial Opening Endoscopic (ICD-10-PCS; 2023-02-27)
PROC: 0UBC8ZZ Excision of Cervix, Via Natural or Artificial Opening Endoscopic (ICD-10-PCS; principal; 2023-02-27 07:30)
DX: N95.0 Postmenopausal bleeding (principal); N84.0 Polyp of corpus uteri; N84.1 Polyp of cervix uteri
CPT/HCPCS: 81025; 88305-TC; 94760

== ENCOUNTER 2025-04-14 09:08 | Emergency (ER) | payer OTHER ==
[2025-04-14 09:15] VITALS: TEMP 99.6; BMI 48.2
[2025-04-14 10:34] LABS: ABSOLUTE IMMATURE GRANULOCYTES 0.02 x10^3/uL (0.0-0.031); BASOPHILS # 0.03 x10^3/uL (0.01-0.08); EOSINOPHIL % 2.5 % (0.7-5.8); EOSINOPHILS # 0.15 x10^3/uL (0.04-0.36); HEMATOCRIT 43.3 % (34.1-44.9); HEMOGLOBIN 14.1 g/dL (11.2-15.7); MCHC 32.6 g/dl (32.2-35.5); MEAN CELL VOLUME 91.7 fl (79.4-94.8); MEAN PLT VOLUME 10.1 fl (9.4-12.3); MONOCYTE # 0.41 x10^3/uL (0.24-0.86); MONOCYTE % 6.8 % (4.7-12.5); PLATELET COUNT 257 x10^3/uL (182-369); RDW 12.7 % (12.2-17.1)
[2025-04-14 10:45] LABS: INR 0.95 (0.83-1.09); PROTHROMBIN TIME (PATIENT) 10.4 SEC (9.7-13.0)
[2025-04-14 10:48] LABS: ACTIVATED PTT 31.6 SECONDS (25.2-36.5)
[2025-04-14 10:57] LABS: CALCIUM 9.4 mg/dL (8.5-10.1)
[2025-04-14 10:58] LABS: ALBUMIN 3.8 g/dl (3.4-5.0); BLOOD UREA NITROGEN 13.7 mg/dL (7-18)
[2025-04-14 11:02] LABS: BILIRUBIN,TOTAL 0.7 mg/dL (0.2-1); TOT PROT 7.3 g/dl (6.4-8.2)
[2025-04-14 11:07] LABS: N-TERMINAL BNP 43.8 pg/ml (5-125)
[2025-04-14 12:48] LABS: EPI CELLS 4 /uL (0-25.1); HYALINE CASTS 0 /uL (0-3.1); URINE APPEARANCE CLEAR; URINE BACTERIA 3 /uL (0-1359); URINE BILIRUBIN NEGATIVE (NEGATIVE); URINE COLOR YELLOW; URINE GLUCOSE (UA) NEGATIVE (NEGATIVE); URINE KETONE NEGATIVE (NEGATIVE); URINE LEUK ESTERASE NEGATIVE (NEGATIVE); URINE NITRITE NEGATIVE (NEGATIVE); URINE PROTEIN NEGATIVE (NEGATIVE); URINE RBC 543 /uL (0-23.9); URINE UROBILINOGEN 0.2 mg/dL (0.2-1.0); URINE WBC 3 /uL (0-25.8)
[2025-04-14 12:55] LABS: HCV DIAGNOSTIC IN-HOUSE W/RFLX NON-REACTIVE (NONREACTIVE); HIV INTERPRETATION NEGATIVE (NEGATIVE)
[2025-04-14 13:49] VITALS: BP 160/101; PULSE 95; RESP 20
== END 2025-04-14 14:55 | disposition home or self-care (01) ==
LOC: JER 09:08
DX: R07.89 Other chest pain (principal); R00.2 Palpitations; R06.02 Shortness of breath; M79.605 Pain in left leg; R11.0 Nausea; R42 Dizziness and giddiness; R61 Generalized hyperhidrosis
CPT/HCPCS: 0241U-QW; 36415; 71046-TC-FY; 71275-TC; 80053; 81003; 83690; 83880; 84484; 85025; 85379; 85610; 85730; 86803; 86850; 86900; 86901; 87086; 87389; 93005; 93010; 93971-TC; 99285-25; Q9967